=== PATIENT | female | born 1995 | race African-American/Black ===

== ENCOUNTER 2017-11-25 21:03 | Emergency (ER) | payer SELFPAY ==
[~2017-11-25] VITALS: Ht 160 cm; Wt 107.0 kg
[2017-11-25 21:04] VITALS: BP 155/97
[2017-11-25] MEDS ORDERED: CLINDAMYCIN150 MG PO (21:31)
== END 2017-11-25 21:45 | disposition home or self-care (01) ==
LOC: ED 21:03
DX: K04.7 Periapical abscess without sinus (principal); Z91.013 Allergy to seafood

== ENCOUNTER 2019-01-19 15:10 | Emergency (ER) | payer SELFPAY ==
[~2019-01-19] VITALS: Ht 160 cm; Wt 102.1 kg
[~2019-01-19 15:10] MED LIST: CEFADROXIL500 M1 PO; CLINDAMYCIN150 MG PO; Motrin,Rufen800 MG PO; PREDNISONE20 M1 PO; ROBAXIN500 M1 PO
[2019-01-19 16:07] LABS: BASO % 0.2 % (0.0-1.0); EOS # 0.1 10*3/uL (0.0-0.4); EOS % 1.2 % (1.0-4.0); HEMATOCRIT 34.8 % (37.0-47.0); HEMOGLOBIN 11.1 g/dl (12.0-16.0); LYMPH # 2.3 10*3/uL (1.3-4.4); LYMPH % 21.8 % (27.0-41.0); MEAN CELL VOLUME 80.4 fl (81.0-99.0); MEAN CORPUSCULAR HGB 25.6 pg (27.0-31.0); MEAN CORPUSCULAR HGB CONC 31.9 g/dl (33.0-37.0); MONO # 0.5 10*3/uL (0.1-1.0); MONO % 4.6 % (3.0-9.0); NEUT # 7.7 10*3/uL (2.3-7.9); NEUT % 71.9 % (47.0-73.0); PLATELET COUNT AUTOMATED 316 10*3/uL (130-400); RED BLOOD COUNT 4.33 10*6/uL (4.10-5.10); RED CELL DISTRI WIDTH 15.1 % (0-14.5); WHITE BLOOD COUNT 10.7 10*3/uL (4.8-10.8)
[2019-01-19 16:17] LABS: BILIRUBIN NEGATIVE (NEGATIVE); BLOOD NEGATIVE (NEGATIVE); CLARITY SL CLOUDY (CLEAR); COLOR YELLOW (YELLOW); GLUCOSE NEGATIVE (NEGATIVE); KETONE NEGATIVE (NEGATIVE); LEUKO ESTERASE NEGATIVE (NEGATIVE); NITRITE NEGATIVE (NEGATIVE); UROBILINOGEN 0.2 E.U./dl (0.2-1.0)
[2019-01-19 16:20] LABS: ALBUMIN 3.1 gm/dl (3.1-4.5); ALKALINE PHOSPHATASE 52 U/L (45-117); BUN 7 mg/dl (7-24); CHLORIDE 103 mmol/L (98-107); CREATININE 0.55 mg/dL (0.55-1.02); POTASSIUM 3.7 mmol/L (3.5-5.1); SGOT/AST 11 IU/L (3-35); SGPT/ALT 12 U/L (12-78); SODIUM 136 mmol/L (136-145)
[2019-01-19 16:58] VITALS: BP 115/71
== END 2019-01-19 17:40 | disposition home or self-care (01) ==
LOC: ED 15:10
PROVIDERS: Nurse Practitioner Family
DX: O98.511 Other viral diseases complicating pregnancy, first trimester (principal); R42 Dizziness and giddiness; Z3A.12 12 weeks gestation of pregnancy; Z91.013 Allergy to seafood; Z79.2 Long term (current) use of antibiotics; Z79.899 Other long term (current) drug therapy

== ENCOUNTER → 2019-05-20 | Outpatient (CLI) | payer OTHER | END | disposition home or self-care (01) | LOC: LAB 07:14 | DX: R73.03 Prediabetes (principal) ==

== ENCOUNTER 2020-02-21 13:12 | Emergency (ER) | payer OTHER ==
[~2020-02-21] VITALS: Ht 160 cm; Wt 124.7 kg
[2020-02-21 13:17] VITALS: BP 142/87
[2020-02-21] MEDS ORDERED: IBUPROFEN600 MG PO (15:29)
== END 2020-02-21 15:48 | disposition home or self-care (01) ==
LOC: ED 13:12
DX: M25.512 Pain in left shoulder (principal); R07.9 Chest pain, unspecified; Z91.013 Allergy to seafood

== ENCOUNTER 2021-07-16 17:35 | Emergency (ER) | payer SELFPAY ==
[~2021-07-16] VITALS: Ht 160 cm; Wt 113.4 kg
[~2021-07-16 17:35] MED LIST changes: +IBUPROFEN600 MG PO
[2021-07-16 17:46] VITALS: BP 138/62
[2021-07-16 18:07] LABS: BASO # 0.1 10*3/uL (0.0-0.1); BASO % 0.5 % (0.0-1.0); EOS # 0.2 10*3/uL (0.0-0.4); HEMATOCRIT 33.2 % (37.0-47.0); LYMPH # 2.5 10*3/uL (1.3-4.4); LYMPH % 24.7 % (27.0-41.0); MEAN CELL VOLUME 72.8 fl (81.0-99.0); MEAN CORPUSCULAR HGB 20.6 pg (27.0-31.0); MEAN CORPUSCULAR HGB CONC 28.3 g/dl (33.0-37.0); MEAN PLATELET VOLUME 9.7 fl (9.6-12.3); MONO # 0.8 10*3/uL (0.1-1.0); MONO % 8.1 % (3.0-9.0); NEUT # 6.5 10*3/uL (2.3-7.9); NEUT % 64.4 % (47.0-73.0); PLATELET COUNT AUTOMATED 455 10*3/uL (130-400); RED BLOOD COUNT 4.56 10*6/uL (4.10-5.10); RED CELL DISTRI WIDTH 21.5 % (0-14.5); WHITE BLOOD COUNT 10.1 10*3/uL (4.8-10.8)
[2021-07-16 18:24] LABS: ALKALINE PHOSPHATASE 84 U/L (45-117); BUN 13 mg/dl (7-24); CHLORIDE 105 mmol/L (98-107); CREATININE 0.91 mg/dL (0.55-1.02); POTASSIUM 4.2 mmol/L (3.5-5.1); SGOT/AST 18 IU/L (3-35); SGPT/ALT 13 U/L (12-78); SODIUM 136 mmol/L (136-145); TOTAL PROTEIN 8.9 gm/dL (6.4-8.2)
[2021-07-16] MEDS ORDERED: ZITHROMAX TRI-500 M1 PO (18:45)
[2021-07-16] MEDS ORDERED: PREDNISONE50 MG PO (18:45)
== END 2021-07-16 18:52 | disposition home or self-care (01) ==
LOC: ED 17:35
PROVIDERS: Nurse Practitioner Family
DX: J40 Bronchitis, not specified as acute or chronic (principal); Z20.822 Contact with and (suspected) exposure to COVID-19; Z91.013 Allergy to seafood

== ENCOUNTER 2021-09-16 09:13 | Emergency (ER) | payer MEDICAID ==
[~2021-09-16 09:13] MED LIST changes: +PREDNISONE50 MG PO; +ZITHROMAX TRI-500 M1 PO
[2021-09-16 09:24] VITALS: BP 136/80
[2021-09-16] MEDS ORDERED: ROBITUSSIN DM 105 ML PO (11:06)
== END 2021-09-16 11:11 | disposition home or self-care (01) ==
LOC: ED 09:13
DX: J06.9 Acute upper respiratory infection, unspecified (principal); Z20.822 Contact with and (suspected) exposure to COVID-19

== ENCOUNTER 2021-10-16 15:39 | Emergency (ER) | payer OTHER ==
[~2021-10-16 15:39] MED LIST changes: +ROBITUSSIN DM 105 ML PO
[2021-10-16 15:52] VITALS: BP 118/79
[2021-10-16 16:17] LABS: BILIRUBIN Negative (Negative); BLOOD Negative (Negative); CLARITY Cloudy (Clear); COLOR Yellow (Yellow); GLUCOSE Negative (Negative); KETONE Trace (Negative); LEUKO ESTERASE Negative (Negative); NITRITE Negative (Negative); SPECIFIC GRAVITY 1.025 (1.001-1.030); UROBILINOGEN 0.2 E.U./dl (0.0-1.0)
[2021-10-16 16:26] LABS: BACTERIA 2+; MUCOUS 2+
== END 2021-10-16 18:08 | disposition home or self-care (01) ==
LOC: ED 15:39
PROVIDERS: Nurse Practitioner Family
DX: N94.3 Premenstrual tension syndrome (principal)

== ENCOUNTER 2022-12-16 17:43 | Emergency (ER) | payer OTHER ==
[~2022-12-16] VITALS: Ht 160 cm; Wt 124.7 kg
[2022-12-16 18:21] VITALS: BP 134/80
[2022-12-16] MEDS ORDERED: FEROSUL325 M1 PO (18:27)
[2022-12-16 19:14] LABS: BASO % 0.2 % (0.0-1.0); EOS # 0.1 10*3/uL (0.0-0.4); EOS % 0.6 % (1.0-4.0); HEMATOCRIT 34.3 % (37.0-47.0); LYMPH # 3.2 10*3/uL (1.3-4.4); LYMPH % 25.4 % (27.0-41.0); MEAN CELL VOLUME 74.9 fl (81.0-99.0); MEAN CORPUSCULAR HGB 22.3 pg (27.0-31.0); MEAN CORPUSCULAR HGB CONC 29.7 g/dl (33.0-37.0); MONO # 0.5 10*3/uL (0.1-1.0); MONO % 4.1 % (3.0-9.0); NEUT # 8.7 10*3/uL (2.3-7.9); NEUT % 69.5 % (47.0-73.0); PLATELET COUNT AUTOMATED 394 10*3/uL (130-400); RED BLOOD COUNT 4.58 10*6/uL (4.10-5.10); RED CELL DISTRI WIDTH 19.8 % (0-14.5); WHITE BLOOD COUNT 12.5 10*3/uL (4.8-10.8)
[2022-12-16 19:20] LABS: BILIRUBIN Negative (Negative); BLOOD 3+ (Negative); CLARITY Cloudy (Clear); COLOR Yellow (Yellow); GLUCOSE Negative (Negative); KETONE Trace (Negative); LEUKO ESTERASE 2+ (Negative); NITRITE Negative (Negative); PH 5.5 (4.5-8.0); SPECIFIC GRAVITY 1.025 (1.001-1.030)
[2022-12-16 19:32] LABS: BACTERIA 2+; EPITHELIAL CELLS TNTC; RBC 16-20 rbc/hpf (0-2)
[2022-12-16 19:38] LABS: ALKALINE PHOSPHATASE 84 U/L (46-116); BUN 10 mg/dl (9-23); CHLORIDE 107 mmol/L (98-107); POTASSIUM 3.6 mmol/L (3.4-5.1); TOTAL PROTEIN 7.9 gm/dL (6.0-8.0)
[2022-12-16 19:43] LABS: SGPT/ALT < 7 U/L (10-49)
[2022-12-16] MEDS ORDERED: MACROBID100 M1 PO (19:57)
== END 2022-12-16 19:58 | disposition home or self-care (01) ==
LOC: ED 17:43
PROVIDERS: Nurse Practitioner Family
DX: B27.90 Infectious mononucleosis, unspecified without complication (principal); N39.0 Urinary tract infection, site not specified; Z91.013 Allergy to seafood

== ENCOUNTER 2023-06-13 19:34 | Emergency (ER) | payer OTHER ==
[~2023-06-13] VITALS: Ht 160 cm; Wt 111.1 kg
[~2023-06-13 19:34] MED LIST changes: +FEROSUL325 M1 PO; +MACROBID100 M1 PO
[2023-06-13 20:00] VITALS: BP 128/84
[2023-06-13 21:11] LABS: BILIRUBIN 2+ (Negative); BLOOD Negative (Negative); CLARITY Cloudy (Clear); COLOR Orange (Yellow); GLUCOSE Negative (Negative); KETONE Negative (Negative); LEUKO ESTERASE 2+ (Negative); NITRITE Positive (Negative); PH 5.5 (4.5-8.0); SPECIFIC GRAVITY >= 1.030 (1.001-1.030)
[2023-06-13 21:19] LABS: BACTERIA 1+; WBC 31-40 wbc/hpf (0-5)
[2023-06-13] MEDS ORDERED: SEPTDS PO (21:29)
== END 2023-06-13 21:31 | disposition home or self-care (01) ==
LOC: ED 19:34
PROVIDERS: Physician Assistant Medical
DX: N39.0 Urinary tract infection, site not specified (principal); Z91.013 Allergy to seafood

== ENCOUNTER 2024-04-18 13:55 | Emergency (ER) | payer OTHER ==
[~2024-04-18] VITALS: Ht 157.4 cm; Wt 113.6 kg
[~2024-04-18 13:55] MED LIST changes: +SEPTDS PO
[2024-04-18 14:07] VITALS: BP 116/80
[2024-04-18] MEDS ORDERED: IBUPROFEN 800 MG TAB PO ONE (14:30)
[2024-04-18] MEDS ORDERED: TAMIFLU 75MG CA75 MG PO (15:58)
== END 2024-04-18 16:01 | disposition home or self-care (01) ==
LOC: ED 13:55
DX: J10.1 Influenza due to other identified influenza virus with other respiratory manifestations (principal); Z20.822 Contact with and (suspected) exposure to COVID-19; Z91.013 Allergy to seafood

== ENCOUNTER 2025-01-12 18:34 | Emergency (ER) | payer OTHER ==
[~2025-01-12] VITALS: Ht 160 cm; Wt 113.4 kg
[~2025-01-12 18:34] MED LIST changes: +TAMIFLU 75MG CA75 MG PO
[2025-01-12 18:52] VITALS: BP 138/90
== END 2025-01-12 21:52 | disposition home or self-care (01) ==
LOC: ED 18:34
DX: S60.221A Contusion of right hand, initial encounter (principal); Z91.013 Allergy to seafood; Z87.440 Personal history of urinary (tract) infections; W23.1XXA Caught, crushed, jammed, or pinched between stationary objects, initial encounter; Y93.89 Activity, other specified; Y92.89 Other specified places as the place of occurrence of the external cause; Y99.8 Other external cause status